=== PATIENT | male | born 2000 | race Two or more races ===

== ENCOUNTER 2024-04-10 09:30 | Outpatient (RCR) | payer MEDICAID, SELFPAY ==
--- NOTE | 2024-03-27 09:10 | PT.ODAYNRPT ---
PT Outpatient Daily Note OP Daily Note Outpatient Physical Therapy Treatment Date: 03/27/24 Visit Reasons: RIGHT KNEE SPRIAN Subjective: Pt reports tight knee and patella moves and jolts . Objective: Please see flow sheet for ther ex list. Assessment: Pt highly guarded during PROM and during interventions assigned resulting in poor ROM. Plan: Continue with POC. Length of Time (minutes) of Treatment: 30 Minutes Procedure Charges Therapeutic Exercise 30 minutes: Yes
--- NOTE | 2024-04-05 11:36 | PT.ODAYNRPT ---
PT Outpatient Daily Note OP Daily Note Outpatient Physical Therapy Treatment Date: 04/05/24 Visit Reasons: RIGHT KNEE SPRIAN Subjective: Pt reports knee pain has slightly gone down. Objective: Please see flow sheet for ther ex list. Assessment: Pt guarded during passive and active stretches resulting in poor motion. Pt educated to continue HEP to maximize rehab potential. Plan: Continue with POC. Length of Time (minutes) of Treatment: 30 Minutes Procedure Charges Therapeutic Exercise 30 minutes: Yes
--- NOTE | 2024-04-10 10:25 | PT.ODAYNRPT ---
PT Outpatient Daily Note OP Daily Note Outpatient Physical Therapy Treatment Date: 04/10/24 Visit Reasons: RIGHT KNEE SPRIAN Subjective: Pt reports R knee is doing better, did HEP one time since he was in PT last. Objective: Please see flow sheet for ther ex list. Assessment: Pt able to perform increase range into extension during prone knee hang exercise indicating progress. Plan: Continue with POC. Length of Time (minutes) of Treatment: 30 Minutes Procedure Charges Therapeutic Exercise 30 minutes: Yes
== END 2024-04-20 23:59 | disposition home or self-care (01) ==
LOC: CPTX 09:30
PROVIDERS: PCP Orthopaedic Surgery; Referring Provider Orthopaedic Surgery; Visit Provider Orthopaedic Surgery
DX: M25.561 Pain in right knee (principal); R26.2 Difficulty in walking, not elsewhere classified; R26.89 Other abnormalities of gait and mobility; S83.91XD Sprain of unspecified site of right knee, subsequent encounter; X58.XXXD Exposure to other specified factors, subsequent encounter
CPT/HCPCS: 97110

== ENCOUNTER 2024-05-21 09:30 | Outpatient (RCR) | payer MEDICAID, SELFPAY ==
--- NOTE | 2024-04-23 14:06 | PTNOTE_ITS ---
PT Outpatient Daily Note OP Daily Note Outpatient Physical Therapy Treatment Date: 04/23/24 Visit Reasons: RIGHT KNEE SPRAIN Subjective: Pt reports R knee continue to pop and be painful but notices he can move it more now. Objective: Please see flow sheet for ther ex list. Assessment: Pt demonstrates increase tolerance to interventions assigned. Added TG squat ex ercise pt performed to tolerated squat depth. Plan: Continue with POC. Length of Time (minutes) of Treatment: 30 Minutes Procedure Charges Therapeutic Exercise 30 minutes: Yes
--- NOTE | 2024-05-03 14:54 | PT.ODAYNRPT ---
PT Outpatient Daily Note OP Daily Note Outpatient Physical Therapy Treatment Date: 05/03/24 Visit Reasons: RIGHT KNEE SPRAIN Subjective: Pt reports R knee is doing better, notices knee is omre straight when walking. Pt shared he ran for a short time, was surprised he was able to. Objective: Please see flow sheet for ther ex list. Assessment: Performed LLPS with heel prop exercise, pt highly guarded resulting in poor results. Laying in prone pt is less guarded allowing for increase range into knee extension for LLPS. Plan: Continue with POC. Length of Time (minutes) of Treatment: 30 Minutes Procedure Charges Therapeutic Exercise 30 minutes: Yes
--- NOTE | 2024-05-10 11:19 | PT.ODAYNRPT ---
PT Outpatient Daily Note OP Daily Note Outpatient Physical Therapy Treatment Date: 05/10/24 Visit Reasons: RIGHT KNEE SPRAIN Subjective: Pt reports R knee is moving better but gets weird sensation on R knee. Objective: Please see flow sheet for ther ex list. Assessment: Pt guarded during PROM but ROM into knee extension continues to improve. Pt educated on TKE exercise and instructed to perform for HEP. Plan: Continue with POC. Length of Time (minutes) of Treatment: 30 Minutes Procedure Charges Therapeutic Exercise 30 minutes: Yes
--- NOTE | 2024-05-21 12:06 | PT.ODAYNRPT ---
PT Outpatient Daily Note OP Daily Note Outpatient Physical Therapy Treatment Date: 05/21/24 Visit Reasons: RIGHT KNEE SPRAIN Subjective: Pt's knee is better but still notice some popping with intermittent pain. Objective: Right Knee Extension Lag: -20 deg Assessment: Progressing with knee extension lag; able to tolerate longer passive stretching Plan: Continue with PT Length of Time (minutes) of Treatment: 30 Minutes Procedure Charges Therapeutic Exercise 30 minutes: Yes
== END 2024-05-21 23:59 | disposition home or self-care (01) ==
LOC: CPTX 09:30
PROVIDERS: PCP Orthopaedic Surgery; Referring Provider Orthopaedic Surgery; Visit Provider Orthopaedic Surgery
DX: M25.561 Pain in right knee (principal); R26.2 Difficulty in walking, not elsewhere classified; R26.89 Other abnormalities of gait and mobility; S83.91XD Sprain of unspecified site of right knee, subsequent encounter; X58.XXXD Exposure to other specified factors, subsequent encounter
CPT/HCPCS: 97110